=== PATIENT | female | born 1945 | race Caucasian/White ===

== ENCOUNTER → 2016-09-19 | Outpatient (CLI) | payer OTHER, MEDICARE ==
[~2016-09-19] MED LIST: ACETAMINOPHEN325 MG PO; ASPIR 8181 MG PO; DULERA 100 MCG8.8 GM INH; HABITROL 21 MG P1 EA TD; LANOXIN TAB0.125 MG PO; LASIX TAB 20 MG20 MG PO; LIPITOR TAB 1010 MG PO; LOMOTIL 2.5-0.1 EACH PO; LOPRESSOR 25 MG25 MG PO; RESTORIL 15 MG15 MG PO; SPIRIVA HANDIH18 MCG INH; VITAMIN D250000 UNIT PO; ZESTRIL5 MG PO
== END ==
LOC: MAMO 08:48
DX: Z12.31 Encounter for screening mammogram for malignant neoplasm of breast (principal)
CPT/HCPCS: G0202